=== PATIENT | female | born 1995 | race American Indian/Alaskan Native ===

== ENCOUNTER 2017-10-31 20:13 | Emergency (ER) | payer OTHER ==
[2017-10-31 20:48] VITALS: TEMP 98.6
[2017-10-31] MEDS ORDERED: ACETAMINOPHEN TAB 325 MG TAB PO STA (22:19)
[2017-10-31] MEDS ORDERED: RX INFO: IV CONTRAST WAS GIVEN 1 EACH MISC MISCELLANE PRN (22:21)
[2017-10-31] MEDS ORDERED: SODIUM CHLORIDE 0.9% 1,000 ML IV SCH (22:30)
[2017-10-31] MEDS ORDERED: SODIUM CHLORIDE 0.9% 500 ML IV SCH (22:30)
--- NOTE | 2017-10-31 23:23 | ED ---
Abdominal Pain HPI - General Chief Complaint: Abdominal Pain Stated Complaint: abdominal & back pain Time Seen by Provider: 10/31/17 21:25 Source: patient Mode of arrival: ambulatory Limitations: no limitations - History of Present Illness Initial Comments: Patient is a 22-year-old female presenting for back pain and fever. She states that this started approximately 2 days ago and she is very fatigued. She woke up and noted that she had sold herself and also admits to diffuse abdominal pain and her abdomen feels stiff. She is also having bilateral lower back pain and feels crampy sensation and throughout the day, she has been having bowel movements with little control over them. She denies any nausea or vomiting but admits to fever and cold sweats. She also states that this happened after a alliance party where she did marijuana and drank alcohol but states that she has no history of IV drug abuse. - Related Data Previous Rx's Medication Instructions Recorded Acetaminophen with Codeine 1 tab PO Q6HR 3 Days tab 02/20/16 [Acetaminophen-Cod #4 Tablet] Sulfamethox-Tmp 800-160Mg [Bactrim 1 tab PO Q12HR 7 Days tab 02/20/16 DS 800-160 mg] Allergies Allergy/AdvReac Type Severity Reaction Status Date / Time No Known Allergies Allergy Verified 10/31/17 20:48 Review of Systems ROS Statement: Those systems with pertinent positive or pertinent negative responses have been documented in the HPI. Constitutional: Negative for chills, positive for fatigue and fever and night sweats. HENT: Negative for congestion. Respiratory: Negative for chest tightness, shortness of breath and wheezing. Negative for cough Cardiovascular: Negative for chest pain and palpitations. Gastrointestinal: Positive for abdominal pain and diarrhea. Negative for abdominal distention, , nausea and vomiting. Genitourinary: Negative for dysuria. Musculoskeletal: Negative for neck pain and neck stiffness. positive for back pain Skin: Negative for color change. Neurological: Negative for dizziness, speech difficulty, weakness and light- headedness. Psychiatric/Behavioral: Negative for agitation and confusion. The patient is not nervous/anxious. ROS Other: All systems not noted in ROS Statement are negative. Past Medical History Past Medical History: No Reported History History of Any Multi-Drug Resistant Organisms: ESBL Date of last positivie culture/infection: 02/20/16 MDRO Source:: ESBL URINE E.COLI Past Surgical History: No Surgical Hx Reported Past Psychological History: No Psychological Hx Reported Smoking Status: Current every day smoker Past Alcohol Use History: Occasional Past Drug Use History: Marijuana General Exam - General Exam Comments Initial Comments: Constitutional: Pt is oriented to person, place, and time. Pt appears well- developed and well-nourished. No distress. HENT: Head: Normocephalic and atraumatic. Eyes: EOM are normal. Neck: Normal range of motion. Neck supple. Cardiovascular: Tachycardic, regular rhythm, S1 normal, S2 normal and normal heart sounds. Exam reveals no gallop and no friction rub. No murmur heard. Pulmonary/Chest: Effort normal and breath sounds normal. No tachypnea and no bradypnea. No respiratory distress. No wheezes or rales noted. Abdominal: Soft. Bowel sounds are normal. Pt exhibits no shifting dullness, no distension, no pulsatile liver, no fluid wave, no abdominal bruit and no ascites. There is no tenderness. There is no rigidity, no rebound, no guarding, no tenderness at McBurney's point and negative Cooper's sign. Musculoskeletal: Normal range of motion. Neurological: Pt is alert and oriented to person, place, and time. No cranial nerve deficit. Good rectal tone but no sensations to the anus or surrounding area Skin: Skin is warm and dry. No rash noted. Pt is not diaphoretic. No erythema. No pallor. Psychiatric: Pt has a normal mood and affect. Pt behavior is normal. Thought content normal. Limitations: no limitations Course Vital Signs 10/31/17 20:46 Temperature 98.6 F Pulse Rate 110 H Respiratory 18 Rate Blood Pressure 103/56 O2 Sat by Pulse 100 Oximetry Medical Decision Making - Medical Decision Making There is extensive concerned about cord impingement versus epidural abscess and therefore preparations were made to immediately transfer the patient to a facility that had capabilities of MRI at this time of night. Additionally, laboratory studies were obtained but pending at the time of EMS transfer. CT of the abdomen and CT of the lumbar and T-spine were obtained but reading was pending at the time of transfer. Case is discussed with the receiving doctor at [facility], Dr. Naman Rosenthal, who kindly accepted the transfer. Steroids were not given as is unclear whether this is cord impingement or abscess. Temperature was also noted to be going up or has it was measured at 99.9 Disposition Clinical Impression: Back pain, SIRS (systemic inflammatory response syndrome), Stool incontinence Disposition: OTHER INSTITUTION NOT DEFINED Condition: Fair Is patient prescribed a controlled substance at d/c from ED?: No Referrals: None,Stated [Primary Care Provider] - 1-2 days Time of Disposition: 23:28 - Out of Hospital Transfer - Req. Specs Out of Hospital Transfer - Requested Specifics: Other Emergency Center ([facility])
[2017-10-31 23:26] VITALS: BP 113/83; PULSE 97; RESP 20
[2017-10-31 23:26] LABS: Basophils % (A) 0 %; Eosinophils % (A) 0 %; HCT 33.4 % (34.0-46.0); Lymphocytes # (A) 2.1 k/uL (1.0-4.8); Lymphocytes % (A) 11 %; MCH 29.7 pg (25.0-35.0); Mean Platelet Volume 7.4; Monocytes # (A) 0.8 k/uL (0-1.0); Monocytes % (A) 5 %; Neutrophils % (A) 82 %; Platelet Count 308 k/uL (150-450); RBC 3.71 m/uL (3.80-5.40); RDW 12.7 % (11.5-15.5); WBC 18.3 k/uL (3.8-10.6)
--- NOTE | 2017-10-31 23:28 | CT ---
EXAMINATION TYPE: CT lumbar spine w con DATE OF EXAM: 10/31/2017 COMPARISON: NONE HISTORY: Right lower quadrant pain, bilat flank pain and uncontrolled bowel movements. CT DLP: 375.9 mGycm Automated exposure control for dose reduction was used. CONTRAST: CT scan of the lumbar is performed with IV Contrast, patient injected with 100 mL of Isovue 300. Enhanced CT of the lumbar spine was performed. Bone and soft tissue window settings are submitted as well as coronal and sagittal reconstructions. The lumbar vertebra have normal spacing and alignment. Posterior elements are intact. There is no spi nal stenosis. I see no lumbar disc herniation. There is no lumbar paraspinal mass. The sacroiliac winnie nts appear normal. There is no evidence of focal bone destruction. There is no pathologic enhancement . The kidneys show no hydronephrosis. IMPRESSION: Normal CT scan of the lumbar spine.
--- NOTE | 2017-10-31 23:35 | CT ---
EXAMINATION TYPE: CT thoracic spine w con DATE OF EXAM: 10/31/2017 COMPARISON: NONE HISTORY: Right lower quadrant pain, bilat flank pain and uncontrolled bowel movements. CT DLP: 370.4 mGycm Automated exposure control for dose reduction was used. CONTRAST: Performed with IV Contrast, patient injected with 100 mL of Isovue 300. FINDINGS: The thoracic vertebra have normal spacing and alignment. Posterior elements are intact. There is no t horacic paraspinal mass. There is no compression fracture. There is no pathologic enhancement. There is no evidence of spinal stenosis. I see no thoracic disc herniation. IMPRESSION: NORMAL CT SCAN OF THE THORACIC SPINE.
[2017-10-31 23:39] LABS: ALT 28 U/L (9-52); AST 20 U/L (14-36); Albumin 3.1 g/dL (3.5-5.0); Alkaline Phosphatase 89 U/L (38-126); Anion Gap 13 mmol/L; Blood Urea Nitrogen 10 mg/dL (7-17); Calcium 8.7 mg/dL (8.4-10.2); Carbon Dioxide 25 mmol/L (22-30); Chloride 99 mmol/L (98-107); Glucose 106 mg/dL (74-99); Magnesium 2.2 mg/dL (1.6-2.3); Sodium 137 mmol/L (137-145); Total Bilirubin 0.2 mg/dL (0.2-1.3); Total Protein 6.2 g/dL (6.3-8.2)
--- NOTE | 2017-11-01 | CT ---
EXAMINATION TYPE: CT abdomen pelvis w con DATE OF EXAM: 10/31/2017 COMPARISON: NONE HISTORY: Right lower quadrant pain, bilat flank pain and uncontrolled bowel movements. CT DLP: 375.9 mGycm Automated exposure control for dose reduction was used. TECHNIQUE: Helical acquisition of images was performed from the lung bases through the pelvis. CONTRAST: Performed without Oral Contrast and with IV Contrast, patient injected with 100 mL of Isovue 300. FINDINGS: Lung bases are clear. There is no pleural effusion. Heart size is normal. Liver spleen pancreas gallbladder appear normal. Bile ducts are not dilated. There is no adrenal mass . Kidneys show satisfactory contrast opacification. There is no hydronephrosis. There is no retroperi toneal adenopathy. There is no ascites. Bladder distends smoothly. There is large bowel fluid levels down to the rectum. Uterus is anteverted. I see no free fluid in the pelvis. There is probably 2.3 cm cyst on the right ovary. The appendix appears normal. Bony structures appear intact. IMPRESSION: NORMAL APPENDIX. LARGE BOWEL FLUID CONSISTENT WITH DIARRHEA. RIGHT OVARY CYST.
== END 2017-10-31 23:58 | disposition short-term general hospital (02) ==
LOC: EC 20:13
DX: M54.5 Low back pain (principal); R65.10 Systemic inflammatory response syndrome (SIRS) of non-infectious origin without acute organ dysfunction; R15.9 Full incontinence of feces; R00.0 Tachycardia, unspecified; R10.84 Generalized abdominal pain; R50.9 Fever, unspecified; R53.83 Other fatigue; F17.200 Nicotine dependence, unspecified, uncomplicated
CPT/HCPCS: 36415; 80053; 83605; 83735; 85025; 87040; 72129; 72132; 74177; 99285; 96360; Q9967

== ENCOUNTER 2017-12-09 16:39 | Emergency (ER) | payer OTHER ==
[2017-12-09 16:56] VITALS: RESP 18
[2017-12-09] MEDS ORDERED: SODIUM CHLORIDE 0.9% 1,000 ML IV STA (17:40)
--- NOTE | 2017-12-09 17:43 | ED ---
General Adult HPI - General Chief complaint: Vaginal Bleeding Stated complaint: BLEEDING X 4 WEEKS, CRAMPING Time Seen by Provider: 12/09/17 17:16 Source: patient, RN notes reviewed Mode of arrival: ambulatory Limitations: no limitations - History of Present Illness Initial comments: 22-year-old female who presents emergency room today with chief complaint of vaginal bleeding over the last 4 weeks. She states she's had lower abdominal cramping. She states she's been using a pad and tampons at times. Patient states that he has not follow-up with her PC MAINTENANCE TECHNICIAN. She states she's recently moved to the area. She states she did have a normal and vaginal 10 months ago. Patient also admits that she is worried and has concerns for possible STD of herpes. She states she's noticed some bumps at times over the last 6 months around her anus. She states that they are itchy. She does admit to anal sex in the past. Denies any other complaints. Patient denies any recent fever, chills, shortness of breath, chest pain, back pain, vomiting, numbness or tingling, dysuria or hematuria, constipation or diarrhea, headaches or visual changes, or any other complaints. - Related Data Home Medications Medication Instructions Recorded Confirmed Naproxen Sodium [Midol] 220 mg PO Q12HR PRN 12/09/17 12/09/17 Allergies Allergy/AdvReac Type Severity Reaction Status Date / Time No Known Allergies Allergy Verified 12/09/17 17:25 Review of Systems ROS Statement: Those systems with pertinent positive or pertinent negative responses have been documented in the HPI. ROS Other: All systems not noted in ROS Statement are negative. Past Medical History Past Medical History: No Reported History History of Any Multi-Drug Resistant Organisms: ESBL Date of last positivie culture/infection: 02/20/16 MDRO Source:: ESBL URINE E.COLI Past Surgical History: No Surgical Hx Reported Past Psychological History: No Psychological Hx Reported Smoking Status: Current every day smoker Past Alcohol Use History: Occasional Past Drug Use History: Marijuana General Exam - General Exam Comments Initial Comments: General: The patient is awake and alert, in no distress, and does not appear acutely ill. Eye: Pupils are equal, round and reactive to light, extra-ocular movements are intact. No nystagmus. There is normal conjunctiva bilaterally. No signs of icterus. Ears, nose, mouth and throat: There are moist mucous membranes and no oral lesions. Neck: The neck is supple, there is no tenderness or JVD. Cardiovascular: There is a regular rate and rhythm. No murmur, rub or gallop is appreciated. Respiratory: Lungs are clear to auscultation, respirations are non-labored, breath sounds are equal. No wheezes, stridor, rales, or rhonchi. Gastrointestinal: Soft, non-distended, non-tender abdomen without masses or organomegaly noted. There is no rebound or guarding present. No CVA tenderness. Bowel sounds are unremarkable. Musculoskeletal: Normal ROM, no tenderness. Strength 5/5. Sensation intact. Pulses equal bilaterally 2+. Neurological: A&O x 3. CN II-XII intact, There are no obvious motor or sensory deficits. Coordination appears grossly intact. Speech is normal. Skin: Skin is warm and dry and no rashes or lesions are noted. Psychiatric: Cooperative, appropriate mood & affect, normal judgment. : RECREATION PROFESSORSHERIF Brownlee present for exam. Patient did have some mild blood in the vaginal vault. Patient normal appearance of rectum. 2 skin breakdowns at the top of the buttocks superficial in nature no sign of infection. Limitations: no limitations Course Vital Signs 12/09/17 16:54 Temperature 98.4 F Pulse Rate 69 Respiratory 18 Rate Blood Pressure 135/84 O2 Sat by Pulse 100 Oximetry Medical Decision Making - Medical Decision Making Patient reexamined at this time shows no signs of distress. Ultrasound reviewed and does show evidence for a right-sided ovarian cyst. Shows good Doppler color flow to both left and right ovary. No sign of ovarian torsion. Patient's labs been reviewed and negative trichomonas. Patient did state there was concern for STDs. With like to be treated. Will be given a dose of Rocephin and azithromycin. Cultures are pending. No evidence for herpes clinically. Patient advised to follow-up with PC MAINTENANCE TECHNICIAN or vaginal bleeding that' s been going on for the past 4 weeks. Advised return for any other concerns. - Lab Data Result diagrams: 12/09/17 18:05 12/09/17 18:05 Lab Results 12/09/17 12/09/17 12/09/17 Range/Units 18:05 18:05 18:07 WBC 8.4 (3.8-10.6) k/uL RBC 4.18 (3.80-5.40) m/uL Hgb 12.5 (11.4-16.0) gm/dL Hct 38.5 (34.0-46.0) % MCV 92.2 (80.0-100.0) fL MCH 29.9 (25.0-35.0) pg MCHC 32.5 (31.0-37.0) g/dL RDW 14.0 (11.5-15.5) % Plt Count 419 (150-450) k/uL Neutrophils % 57 % Lymphocytes % 33 % Monocytes % 4 % Eosinophils % 2 % Basophils % 0 % Neutrophils # 4.9 (1.3-7.7) k/uL Lymphocytes # 2.8 (1.0-4.8) k/uL Monocytes # 0.4 (0-1.0) k/uL Eosinophils # 0.2 (0-0.7) k/uL Basophils # 0.0 (0-0.2) k/uL Sodium 140 (137-145) mmol/L Potassium 4.2 (3.5-5.1) mmol/L Chloride 105 (98-107) mmol/L Carbon Dioxide 23 (22-30) mmol/L Anion Gap 12 mmol/L BUN 8 (7-17) mg/dL Creatinine 0.50 L (0.52-1.04) mg/dL Est GFR (CKD-EPI)AfAm >90 (>60 ml/min/1.73 sqM) Est GFR (CKD-EPI)NonAf >90 (>60 ml/min/1.73 sqM) Glucose 79 (74-99) mg/dL Calcium 9.7 (8.4-10.2) mg/dL Total Bilirubin 0.5 (0.2-1.3) mg/dL AST 31 (14-36) U/L ALT 31 (9-52) U/L Alkaline Phosphatase 83 (38-126) U/L Total Protein 7.6 (6.3-8.2) g/dL Albumin 4.1 (3.5-5.0) g/dL Urine Color Urine Appearance (Clear) Urine pH (5.0-8.0) Ur Specific [place] (1.001-1.035) Urine Protein (Negative) Urine Glucose (UA) (Negative) Urine Ketones (Negative) Urine Blood (Negative) Urine Nitrite (Negative) Urine Bilirubin (Negative) Urine Urobilinogen (<2.0) mg/dL Ur Leukocyte Esterase (Negative) Urine RBC (0-5) /hpf Urine WBC (0-5) /hpf Ur Squamous Epith Cells (0-4) /hpf Urine Mucus (None) /hpf Urine HCG, Qual (Not Detectd) Trichomonas Ag (Rapid) Negative (Negative) 12/09/17 12/09/17 Range/Units 18:10 18:10 WBC (3.8-10.6) k/uL RBC (3.80-5.40) m/uL Hgb (11.4-16.0) gm/dL Hct (34.0-46.0) % MCV (80.0-100.0) fL MCH (25.0-35.0) pg MCHC (31.0-37.0) g/dL RDW (11.5-15.5) % Plt Count (150-450) k/uL Neutrophils % % Lymphocytes % % Monocytes % % Eosinophils % % Basophils % % Neutrophils # (1.3-7.7) k/uL Lymphocytes # (1.0-4.8) k/uL Monocytes # (0-1.0) k/uL Eosinophils # (0-0.7) k/uL Basophils # (0-0.2) k/uL Sodium (137-145) mmol/L Potassium (3.5-5.1) mmol/L Chloride (98-107) mmol/L Carbon Dioxide (22-30) mmol/L Anion Gap mmol/L BUN (7-17) mg/dL Creatinine (0.52-1.04) mg/dL Est GFR (CKD-EPI)AfAm (>60 ml/min/1.73 sqM) Est GFR (CKD-EPI)NonAf (>60 ml/min/1.73 sqM) Glucose (74-99) mg/dL Calcium (8.4-10.2) mg/dL Total Bilirubin (0.2-1.3) mg/dL AST (14-36) U/L ALT (9-52) U/L Alkaline Phosphatase (38-126) U/L Total Protein (6.3-8.2) g/dL Albumin (3.5-5.0) g/dL Urine Color Yellow Urine Appearance Clear (Clear) Urine pH 7.0 (5.0-8.0) Ur Specific [place] 1.021 (1.001-1.035) Urine Protein Negative (Negative) Urine Glucose (UA) Negative (Negative) Urine Ketones Negative (Negative) Urine Blood Small H (Negative) Urine Nitrite Negative (Negative) Urine Bilirubin Negative (Negative) Urine Urobilinogen <2.0 (<2.0) mg/dL Ur Leukocyte Esterase Negative (Negative) Urine RBC 1 (0-5) /hpf Urine WBC 5 (0-5) /hpf Ur Squamous Epith Cells 1 (0-4) /hpf Urine Mucus Rare H (None) /hpf Urine HCG, Qual Not Detected (Not Detectd) Trichomonas Ag (Rapid) (Negative) Disposition Clinical Impression: Dysfunctional uterine bleeding Disposition: HOME SELF-CARE Condition: Good Instructions: Dysfunctional Uterine Bleeding (ED) Additional Instructions: Please follow-up with PC MAINTENANCE TECHNICIAN over the next 2 days. Please return to emergency room symptoms increase worsen appropriate concerns. Is patient prescribed a controlled substance at d/c from ED?: No Referrals: None,Stated [Primary Care Provider] - 1-2 days Markos Hdez DO [Doctor of Osteopathic Medicine] - 1-2 days Time of Disposition: 19:39
[2017-12-09 18:26] LABS: Basophils % (A) 0 %; Eosinophils # (A) 0.2 k/uL (0-0.7); Eosinophils % (A) 2 %; HCT 38.5 % (34.0-46.0); HGB 12.5 gm/dL (11.4-16.0); Lymphocytes # (A) 2.8 k/uL (1.0-4.8); Lymphocytes % (A) 33 %; MCH 29.9 pg (25.0-35.0); MCHC 32.5 g/dL (31.0-37.0); MCV 92.2 fL (80.0-100.0); Mean Platelet Volume 6.6; Monocytes # (A) 0.4 k/uL (0-1.0); Monocytes % (A) 4 %; Neutrophils # (A) 4.9 k/uL (1.3-7.7); Neutrophils % (A) 57 %; Platelet Count 419 k/uL (150-450); RBC 4.18 m/uL (3.80-5.40); WBC 8.4 k/uL (3.8-10.6)
[2017-12-09 18:35] LABS: ALT 31 U/L (9-52); AST 31 U/L (14-36); Albumin 4.1 g/dL (3.5-5.0); Alkaline Phosphatase 83 U/L (38-126); Anion Gap 12 mmol/L; Blood Urea Nitrogen 8 mg/dL (7-17); Calcium 9.7 mg/dL (8.4-10.2); Carbon Dioxide 23 mmol/L (22-30); Chloride 105 mmol/L (98-107); Glucose 79 mg/dL (74-99); Potassium 4.2 mmol/L (3.5-5.1); Sodium 140 mmol/L (137-145); Total Bilirubin 0.5 mg/dL (0.2-1.3); Total Protein 7.6 g/dL (6.3-8.2)
--- NOTE | 2017-12-09 19:13 | US ---
EXAMINATION TYPE: US transvaginal DATE OF EXAM: 12/09/2017 COMPARISON: NONE CLINICAL HISTORY: pain. Bleeding x 4 weeks. TECHNIQUE: Transvaginal (TV). EXAM MEASUREMENTS: Uterus: 7.5 x 3.9 x 4.7 cm Endometrial Stripe: 0.6 cm Right Ovary: 3.9 x 3.6 x 3.6 cm Left Ovary: 2.9 x 1.9 x 2.7 cm 1. Uterus: Anteverted wnl 2. Endometrium: wnl 3. Right Ovary: Complex area seen measuring 3.1 x 1.7 x 2.5 cm. Likely physiologic, this can be prov ed with six-week follow-up ultrasound. 4. Left Ovary: Subcentimeter echogenic focus noted, measuring 0.8 x 0.5 x 0.8 cm. Spectral, color and waveform doppler imaging shows good arterial and venous flow within the ovaries ; there is no evidence for ovarian torsion. 5. Bilateral Adnexa: wnl 6. Posterior cul-de-sac: Small amount of fluid seen. IMPRESSION: 1. NO DEFINITE ACUTE PROCESS. 2. Right ovarian complex cysts and small volume cul-de-sac fluid; likely physiologic.
[2017-12-09 19:25] LABS: Appearance,Urine Clear (Clear); Bilirubin,Urine Negative (Negative); Blood,Urine Small (Negative); Color,Urine Yellow; Glucose,Urine (UA) Negative (Negative); Ketones,Urine Negative (Negative); Leukocyte Esterase,Urine Negative (Negative); Mucus,Urine Rare /hpf; Nitrite,Urine Negative (Negative); Protein,Urine Negative (Negative); RBC,Urine 1 /hpf (0-5); Specific Gravity,Urine 1.021 (1.001-1.035); Squamous Epithelial Cell,Urine 1 /hpf (0-4); Urobilinogen,Urine <2.0 mg/dL (<2.0); WBC,Urine 5 /hpf (0-5)
[2017-12-09] MEDS ORDERED: AZITHROMYCIN 500 MG TAB PO STA (19:34)
[2017-12-09] MEDS ORDERED: cefTRIAXone 250 MG VIAL IM STA (19:34)
[2017-12-09 20:01] VITALS: BP 126/72; PULSE 76; TEMP 97.7
[2017-12-11 14:23] LABS: C. trachomatis,PCR Positive (Neg,Equiv); Chlamydia trachomatis Source Vagina; N. gonorrhoeae,PCR Negative (Neg,Equiv); Neisseria Source Vagina
== END 2017-12-09 19:59 | disposition home or self-care (01) ==
LOC: EC 16:39
DX: N93.8 Other specified abnormal uterine and vaginal bleeding (principal); F17.200 Nicotine dependence, unspecified, uncomplicated
CPT/HCPCS: 36415; 87529; 80053; 85025; 81001; 81025; 87808; 87491; 87591; 87070; 93975; 76830; 99284; 96360; 96372; J0696; 87205

== ENCOUNTER 2018-01-19 11:57 | Emergency (ER) | payer OTHER ==
[2018-01-19 12:11] VITALS: TEMP 98.6
[2018-01-19 14:49] LABS: Appearance,Urine Clear (Clear); Bilirubin,Urine Negative (Negative); Blood,Urine Negative (Negative); Color,Urine Yellow; Glucose,Urine (UA) Negative (Negative); Ketones,Urine Negative (Negative); Leukocyte Esterase,Urine Negative (Negative); Nitrite,Urine Negative (Negative); PH, Urine 6.5 (5.0-8.0); Protein,Urine Negative (Negative); Specific Gravity,Urine 1.019 (1.001-1.035); Urobilinogen,Urine <2.0 mg/dL (<2.0)
[2018-01-19] MEDS ORDERED: cefTRIAXone 250 MG VIAL IM STA (14:51)
[2018-01-19] MEDS ORDERED: metroNIDAZOLE 500 MG TAB PO STA (14:51)
[2018-01-19] MEDS ORDERED: AZITHROMYCIN 500 MG TAB PO STA (14:52)
[2018-01-19] MEDS ORDERED: ONDANSETRON ODT 4 MG TAB PO STA (14:52)
--- NOTE | 2018-01-19 15:00 | ED ---
General Adult HPI - General Chief complaint: Skin/Abscess/Foreign Body Stated complaint: Female Gu Time Seen by Provider: 01/19/18 13:35 Source: patient Mode of arrival: ambulatory Limitations: no limitations - History of Present Illness Initial comments: 22-year-old female with no past medical history presents today for chief complaint of vaginal discharge and no exposure to chlamydia. Patient states that she was told by her boyfriend that he has chlamydia, and he is being treated. She did admit to increased vaginal discharge that is whitish yellow in color with a odor denies fishy odor. Patient denies abdominal pain, fever, chills, vaginal bleeding, pain with sex or any other symptoms patient is requesting STD treatment. Patient denies any shortness of breath, chest pain, back pain, nausea or vomiting, numbness or tingling, dysuria or hematuria, constipation or diarrhea, headaches or visual changes, or any other complaints. Patient states last menstrual period 3 weeks ago, this was normal and at her regular time. - Related Data Home Medications Medication Instructions Recorded Confirmed No Known Home Medications 01/19/18 01/19/18 Allergies Allergy/AdvReac Type Severity Reaction Status Date / Time No Known Allergies Allergy Verified 01/19/18 13:27 Review of Systems ROS Statement: Those systems with pertinent positive or pertinent negative responses have been documented in the HPI. ROS Other: All systems not noted in ROS Statement are negative. Constitutional: Denies: fever, chills Past Medical History Past Medical History: No Reported History History of Any Multi-Drug Resistant Organisms: ESBL Date of last positivie culture/infection: 02/20/16 MDRO Source:: ESBL URINE E.COLI Past Surgical History: No Surgical Hx Reported Past Psychological History: No Psychological Hx Reported Smoking Status: Current every day smoker Past Alcohol Use History: Occasional Past Drug Use History: None Reported, Marijuana General Exam - General Exam Comments Initial Comments: General: The patient is awake and alert, in no distress, and does not appear acutely ill. Eye: Pupils are equal, round and reactive to light, extra-ocular movements are intact. No nystagmus. There is normal conjunctiva bilaterally. No signs of icterus. Ears, nose, mouth and throat: There are moist mucous membranes and no oral lesions. Neck: The neck is supple, there is no tenderness or JVD. Cardiovascular: There is a regular rate and rhythm. No murmur, rub or gallop is appreciated. Respiratory: Lungs are clear to auscultation, respirations are non-labored, breath sounds are equal. No wheezes, stridor, rales, or rhonchi. Gastrointestinal: Soft, non-distended, non-tender abdomen without masses or organomegaly noted. There is no rebound or guarding present. Bowel sounds are unremarkable. Neurological: A&O x 3. CN II-XII intact, There are no obvious motor or sensory deficits. Coordination appears grossly intact. Speech is normal. Skin: Skin is warm and dry and no rashes or lesions are noted. Psychiatric: Cooperative, appropriate mood & affect, normal judgment. Pelvic performed with choir accompanist in room: No vulvar or vaginal lesions. Vaginal mucosa pink and moist, rugae present. No lesions of cervix, closed cervical os no discharge from cervical os. White/yellow discharge in vaginal vault without odor. (-) Chandelier sign. No adnexal tenderness on bimanual exam. No palpable masses of the uterus. Limitations: no limitations Course Vital Signs 01/19/18 01/19/18 12:07 16:15 Temperature 98.6 F Pulse Rate 68 88 Respiratory 18 20 Rate Blood Pressure 138/79 138/78 O2 Sat by Pulse 99 100 Oximetry Medical Decision Making - Medical Decision Making Pt presenting with known chlamydia exposure. Pelvic was performed revealed no vulvar or vaginal lesions, no lesions of cervix, closed cervical os. White/ yellow discharge in vaginal vault without odor. (-) Chandelier sign. Urine HCG and Trichomonas testing returned (-). UA WNL. Because pt had no complaints of abdominal pain or adnexal tenderness, fever or chills I do not feel patient has PID at this time. Pt was treated for Gonorrhea and Chlamydia and d/c in stable condition. Case was discussed with Dr. Sellers prior to d/c. - Lab Data Lab Results 01/19/18 01/19/18 01/19/18 Range/Units 14:30 14:30 14:30 Urine Color Yellow Urine Appearance Clear (Clear) Urine pH 6.5 (5.0-8.0) Ur Specific [place] 1.019 (1.001-1.035) Urine Protein Negative (Negative) Urine Glucose (UA) Negative (Negative) Urine Ketones Negative (Negative) Urine Blood Negative (Negative) Urine Nitrite Negative (Negative) Urine Bilirubin Negative (Negative) Urine Urobilinogen <2.0 (<2.0) mg/dL Ur Leukocyte Esterase Negative (Negative) Urine HCG, Qual Not Detected (Not Detectd) Trichomonas Ag (Rapid) Negative (Negative) Disposition Clinical Impression: Vaginal discharge Disposition: HOME SELF-CARE Condition: Good Instructions: Cervicitis (ED), Vaginal Discharge (ED) Additional Instructions: Please use medication as discussed. Please follow-up with family doctor in the next 2 days of symptoms have not improved. Please return to emergency room if the symptoms increase or worsen or for any other concerns. Is patient prescribed a controlled substance at d/c from ED?: No Referrals: None,Stated [Primary Care Provider] - 1-2 days Time of Disposition: 14:59
[2018-01-19 16:15] VITALS: BP 138/78; PULSE 88; RESP 20
[2018-01-21 07:50] LABS: C. trachomatis,PCR Negative (Neg,Equiv); Chlamydia trachomatis Source Urine
== END 2018-01-19 16:28 | disposition home or self-care (01) ==
LOC: EC 11:57
DX: N89.8 Other specified noninflammatory disorders of vagina (principal); F17.200 Nicotine dependence, unspecified, uncomplicated
CPT/HCPCS: 81003; 81025; 87808; 87491; 87086; 99283; 96372; J0696